=== PATIENT | male | born 1950 | race Caucasian/White ===

== ENCOUNTER 2018-04-17 10:23 | Emergency (ER) | payer MEDICARE, OTHER ==
[~2018-04-17 10:23] MED LIST: ASCO500C9 PO; ASPI-879 PO; CHOL200074 PO; GING250C3 PO; IBU200 PO; KRIL1CAP6 PO; LISI-355 PO; MAGN100T PO; METF-450 PO; PANT40TA65 PO; VITA1CAP46 PO; VITAMINS
[2018-04-17] MEDS ORDERED: TURM1POW3 MC (10:40)
[2018-04-17] MEDS ORDERED: MELA5TAB20 PO (10:40)
[2018-04-17] MEDS ORDERED: ASPI-1471 PO (10:40)
[2018-04-17] MEDS ORDERED: TUMERIC PO (10:40)
[2018-04-17] MEDS ORDERED: FINA5TAB67 PO (10:40)
[2018-04-17] MEDS ORDERED: ATOR20TA22 PO (10:40)
[2018-04-17] MEDS ORDERED: TAMS0.4C70 PO (10:40)
[2018-04-17] MEDS ORDERED: UBID10CA11 PO (10:40)
--- NOTE | 2018-04-17 10:46 | ER Report ---
History and Physical Time Seen By MD: 10:46 Hx. of Stated Complaint: MY BALANCE WAS OFF Allergies: Coded Allergies: No Known Allergies (Verified Allergy, Mild, 04/17/18) Home Meds Reported Medications Melatonin (MELATONIN) 5 Mg Tab.rapdis, 5 MG PO HS 04/17/18 Turmeric (CURCUMIN) 1 Gm Powder, 1 GM MC QDAY 04/17/18 Atorvastatin Calcium (LIPITOR) 20 Mg Tablet, 1 TAB PO QDAY, TAB 04/17/18 Finasteride (FINASTERIDE) 5 Mg Tablet, 5 MG PO QDAY 04/17/18 Tamsulosin Hcl (TAMSULOSIN HCL) 0.4 Mg Cap.er.24h, 0.4 MG PO QDAY, CAP 04/17/18 [Tumeric] No Conflict Check, 1 CAP PO QDAY 04/17/18 Ubidecarenone (CO Q-10) 10 Mg Capsule, 10 MG PO QDAY, CAPSULE 04/17/18 Aspirin (ASPIR 81) 81 Mg Tablet.dr, 81 MG PO QDAY, TAB 04/17/18 Metformin Hcl (METFORMIN HCL) 500 Mg Tablet, 2 TAB PO BID, TAB 11/25/16 Joyce Root (JOYCE) 250 Mg Capsule, 250 MG PO DAILY, CAPSULE 04/28/13 Krill/Om3/Dha/Epa/Om6/Lip/Astx (KRILL OIL 1,000 MG SOFTGEL) 1 Each Capsule, 1 EACH PO DAILY, CAPSULE 04/28/13 Vitamin B Complex (VITAMIN B COMPLEX) 1 Each Capsule, 1 EACH PO DAILY, CAPSULE 04/28/13 Ascorbic Acid (VITAMIN C) 500 Mg Capsule.er, 500 MG PO DAILY 04/28/13 Lisinopril/Hydrochlorothiazide (LISINOPRIL-HCTZ 20-25 MG TAB) 1 Each Tablet, 1 EACH PO DAILY 04/28/13 Discontinued Reported Medications Aspirin/Calcium Carbonate/Mag (ASPIRIN BUFFERED 325 MG TAB) 325 Mg Tablet, 325 MG PO DAILY 04/28/13 Magnesium Amino Acid Chelate (MAGNESIUM) 100 Mg Tablet, 100 MG PO DAILY 04/28/13 Cholecalciferol (Vitamin D3) (VITAMIN D-3) 2,000 Unit Capsule, 2000 UNIT PO DAILY, CAPSULE 04/28/13 Pantoprazole Sodium (PANTOPRAZOLE SODIUM) 40 Mg Tablet.dr, 40 MG PO QDAY, TAB.SR 04/28/13 Ibuprofen (Motrin) 200 Mg Tab, 200 MG PO HS 1 04/22/07 Constitutional Vital Sign - Last 24 Hours 04/17/18 10:32 Temp 97.9 Pulse 92 Resp 14 B/P (MAP) 146/105 Pulse Ox 92 O2 Delivery Room Air Depart Departure Latest Vital Signs Vital Signs Date Time Temp Pulse Resp B/P (MAP) Pulse Ox O2 Delivery O2 Flow Rate FiO2 04/17/18 10:32 97.9 92 14 146/105 92 Room Air Condition: Stable Disposition: HOME OR SELF-CARE Referrals: CRISTÓBAL GONZALEZ MD (PCP) BRITTON SIMPSON MD Apr 17, 2018 10:46
--- NOTE | 2018-04-17 11:00 | ER Report ---
History and Physical Time Seen By MD: 10:56 Hx. of Stated Complaint: MY BALANCE WAS OFF HPI/ROS CHIEF COMPLAINT: Lightheadedness HISTORY OF PRESENT ILLNESS: This is a 67-year-old male who presents to the emergency department for lightheadedness. The patient states that this morning while working on become a bike, he became lightheaded and lost his balance, did not fall or hit his head today. He states that he did fall about one month ago at the posterior aspect of his head on the ground, nearly lost consciousness. I ntermittent headaches since. His states that he had right-sided jaw pain this morning, no nausea or vomiting. No chest pain or shortness breath. No rashes. No visual changes. No recent fevers or chills. REVIEW OF SYSTEMS: Constitutional: No fever, no chills. Eyes: No discharge. ENT: No sore throat. Cardiovascular: No chest pain, no palpitations. Respiratory: No cough, no shortness of breath. Gastrointestinal: No abdominal pain, no vomiting. Genitourinary: No hematuria. Musculoskeletal: As above. Skin: No rashes. Neurological: As above. Allergies: Coded Allergies: No Known Allergies (Verified Allergy, Mild, 04/17/18) Home Meds Active Scripts Meclizine Hcl (MECLIZINE HCL) 25 Mg Tablet, 25 MG PO BID PRN for prn, #16 TAB 0 Refills Prov:JENNY TIPTON TABLE HAND-BC 04/17/18 Reported Medications Melatonin (MELATONIN) 5 Mg Tab.rapdis, 5 MG PO HS 04/17/18 Turmeric (CURCUMIN) 1 Gm Powder, 1 GM MC QDAY 04/17/18 Atorvastatin Calcium (LIPITOR) 20 Mg Tablet, 1 TAB PO QDAY, TAB 04/17/18 Finasteride (FINASTERIDE) 5 Mg Tablet, 5 MG PO QDAY 04/17/18 Tamsulosin Hcl (TAMSULOSIN HCL) 0.4 Mg Cap.er.24h, 0.4 MG PO QDAY, CAP 04/17/18 [Tumeric] No Conflict Check, 1 CAP PO QDAY 04/17/18 Ubidecarenone (CO Q-10) 10 Mg Capsule, 10 MG PO QDAY, CAPSULE 04/17/18 Aspirin (ASPIR 81) 81 Mg Tablet.dr, 81 MG PO QDAY, TAB 04/17/18 Metformin Hcl (METFORMIN HCL) 500 Mg Tablet, 2 TAB PO BID, TAB 11/25/16 Donte Root (DONTE) 250 Mg Capsule, 250 MG PO DAILY, CAPSULE 04/28/13 Krill/Om3/Dha/Epa/Om6/Lip/Astx (KRILL OIL 1,000 MG SOFTGEL) 1 Each Capsule, 1 EACH PO DAILY, CAPSULE 04/28/13 Vitamin B Complex (VITAMIN B COMPLEX) 1 Each Capsule, 1 EACH PO DAILY, CAPSULE 04/28/13 Ascorbic Acid (VITAMIN C) 500 Mg Capsule.er, 500 MG PO DAILY 04/28/13 Lisinopril/Hydrochlorothiazide (LISINOPRIL-HCTZ 20-25 MG TAB) 1 Each Tablet, 1 EACH PO DAILY 04/28/13 Discontinued Reported Medications Aspirin/Calcium Carbonate/Mag (ASPIRIN BUFFERED 325 MG TAB) 325 Mg Tablet, 325 MG PO DAILY 04/28/13 Magnesium Amino Acid Chelate (MAGNESIUM) 100 Mg Tablet, 100 MG PO DAILY 04/28/13 Cholecalciferol (Vitamin D3) (VITAMIN D-3) 2,000 Unit Capsule, 2000 UNIT PO DAILY, CAPSULE 04/28/13 Pantoprazole Sodium (PANTOPRAZOLE SODIUM) 40 Mg Tablet.dr, 40 MG PO QDAY, TAB.SR 04/28/13 Ibuprofen (Motrin) 200 Mg Tab, 200 MG PO HS 1 04/22/07 Past Medical/Surgical History The patient has a past medical and surgical history of hypertension, hypercholesterolemia, Debbi sleep apnea, uses BiPAP, pneumonia, colonoscopy, kidney stones, enlarged prostate, arthritis, wears glasses, type II diabetes, total hip replacement, back surgery. Reviewed Nurses Notes: Yes Constitutional Vital Sign - Last 24 Hours 04/17/18 04/17/18 04/17/18 04/17/18 10:28 10:32 10:53 11:00 Temp 97.9 Pulse 92 96 Resp 14 14 B/P (MAP) 146/105 (119) 146/105 126/93 (104) Pulse Ox 92 91 O2 Delivery Room Air Room Air 04/17/18 04/17/18 04/17/18 04/17/18 11:05 11:30 11:35 11:40 Pulse 98 86 86 Resp 12 12 14 B/P (MAP) 126/88 (101) Pulse Ox 90 90 90 O2 Delivery Room Air Room Air Room Air 04/17/18 04/17/18 04/17/18 04/17/18 11:45 12:15 12:30 12:45 Pulse 88 90 96 Resp 14 15 22 B/P (MAP) 125/103 (110) Pulse Ox 90 91 O2 Delivery Room Air Room Air 04/17/18 04/17/18 12:50 13:20 Pulse 87 91 Resp 11 15 Pulse Ox 91 91 O2 Delivery Room Air Room Air Physical Exam General Appearance: The patient is alert, has no immediate need for airway protection and no signs of toxicity. Eyes: Pupils equal and round no pallor or injection. 2-3 beats right lateral nystagmus, 1-2 beats left lateral nystagmus. No vertical nystagmus. EOMs intact. ENT, Mouth: Mucous membranes are moist. Respiratory: There are no retractions, lungs are clear to auscultation. Cardiovascular: Regular rate and rhythm, distant, no murmurs, clicks or rubs. Gastrointestinal: Abdomen is soft, very round, and non tender, no masses, bowel sounds normal. Neurological: Alert and oriented 4. Moving all extremities. Following all commands. No focal neuro deficits. Negative HINTS exam. Positive Romberg's test. Skin: Warm and dry, no rashes. Musculoskeletal: Neck is supple non tender. Extremities are nontender, nonswollen and have full range of motion. DIFFERENTIAL DIAGNOSIS: After history and physical exam differential diagnosis was considered for vertigo including but not limited to peripheral causes such as benign positional vertigo, Mnire's disease, viral labyrinthitis and central causes such as CVA, and tumor. NIH Stroke Scale: 0 Level of consciousness: Alert -0 Answers both questions correctly-0 Performs both tasks correctly-0 Best Gaze: Normal-0 Visual: No visual loss-0 Facial Palsy: Normal, symmetrical movements-0 Motor Left Arm: No drift for 10 seconds-0 Motor Right Arm: No drift for 10 seconds-0 Motor Left Leg: No drift for 5 seconds-0 Motor Right Leg: No drift for 5 seconds-0 Limb Ataxia: Absent-0 Sensory: Normal, no sensory loss-0 Best Language: Normal, no aphasia-0 Dysarthria: Normal-0 Extinction and Inattention: No abnormality-0 Medical Decision Making Data Points Result Diagram: 04/17/18 1130 04/17/18 1130 Laboratory Hematology Test 04/17/18 11:30 Red Blood Count 5.33 M/uL (4.00-5.60) Mean Corpuscular Volume 92.5 fL (80.0-96.0) Mean Corpuscular Hemoglobin 32.4 pg (26.0-33.0) Mean Corpuscular Hemoglobin Concent 35.1 g/dL (32.0-36.0) Red Cell Distribution Width 13.5 % (11.5-14.5) Mean Platelet Volume 7.9 fL (7.2-11.1) Neutrophils (%) (Auto) 58.2 % (39.4-72.5) Lymphocytes (%) (Auto) 30.2 % (17.6-49.6) Monocytes (%) (Auto) 9.3 % (4.1-12.4) Eosinophils (%) (Auto) 1.7 % (0.4-6.7) Basophils (%) (Auto) 0.6 % (0.3-1.4) Nucleated RBC Relative Count (auto) 0.0 /100WBC Neutrophils # (Auto) 3.3 K/uL (2.0-7.4) Lymphocytes # (Auto) 1.7 K/uL (1.3-3.6) Monocytes # (Auto) 0.5 K/uL (0.3-1.0) Eosinophils # (Auto) 0.1 K/uL (0.0-0.5) Basophils # (Auto) 0.0 K/uL (0.0-0.1) Nucleated RBC Absolute Count (auto) 0.00 K/uL Prothrombin Time 13.1 seconds (12.0-14.4) Prothromb Time International Ratio 0.99 Activated Partial Thromboplast Time 26 seconds (23-35) Sodium Level 138 mmol/L (137-145) Potassium Level 4.6 mmol/L (3.5-5.0) Chloride Level 110 mmol/L (98-107) Carbon Dioxide Level 19 mmol/L (22-30) Blood Urea Nitrogen 23 mg/dl (9-21) Creatinine 0.80 mg/dl (0.66-1.25) Glomerular Filtration Rate Calc > 60.0 Random Glucose 201 mg/dl (75-110) Calcium Level 10.4 mg/dl (8.4-10.2) Total Bilirubin 0.7 mg/dl (0.2-1.3) Aspartate Amino Transf (AST/SGOT) 46 U/L (0-35) Alanine Aminotransferase (ALT/SGPT) 53 U/L (0-56) Alkaline Phosphatase 60 U/L (0-126) Troponin I < 0.012 ng/ml Total Protein 7.2 g/dl (6.3-8.2) Albumin 4.3 g/dl (3.5-5.0) Chemistry Test 04/17/18 11:30 White Blood Count 5.7 k/uL (4.5-11.0) Red Blood Count 5.33 M/uL (4.00-5.60) Hemoglobin 17.3 g/dL (14.0-18.0) Hematocrit 49.3 % (42.0-52.0) Mean Corpuscular Volume 92.5 fL (80.0-96.0) Mean Corpuscular Hemoglobin 32.4 pg (26.0-33.0) Mean Corpuscular Hemoglobin Concent 35.1 g/dL (32.0-36.0) Red Cell Distribution Width 13.5 % (11.5-14.5) Platelet Count 183 K/uL (150-450) Mean Platelet Volume 7.9 fL (7.2-11.1) Neutrophils (%) (Auto) 58.2 % (39.4-72.5) Lymphocytes (%) (Auto) 30.2 % (17.6-49.6) Monocytes (%) (Auto) 9.3 % (4.1-12.4) Eosinophils (%) (Auto) 1.7 % (0.4-6.7) Basophils (%) (Auto) 0.6 % (0.3-1.4) Nucleated RBC Relative Count (auto) 0.0 /100WBC Neutrophils # (Auto) 3.3 K/uL (2.0-7.4) Lymphocytes # (Auto) 1.7 K/uL (1.3-3.6) Monocytes # (Auto) 0.5 K/uL (0.3-1.0) Eosinophils # (Auto) 0.1 K/uL (0.0-0.5) Basophils # (Auto) 0.0 K/uL (0.0-0.1) Nucleated RBC Absolute Count (auto) 0.00 K/uL Prothrombin Time 13.1 seconds (12.0-14.4) Prothromb Time International Ratio 0.99 Activated Partial Thromboplast Time 26 seconds (23-35) Glomerular Filtration Rate Calc > 60.0 Calcium Level 10.4 mg/dl (8.4-10.2) Total Bilirubin 0.7 mg/dl (0.2-1.3) Aspartate Amino Transf (AST/SGOT) 46 U/L (0-35) Alanine Aminotransferase (ALT/SGPT) 53 U/L (0-56) Alkaline Phosphatase 60 U/L (0-126) Troponin I < 0.012 ng/ml Total Protein 7.2 g/dl (6.3-8.2) Albumin 4.3 g/dl (3.5-5.0) Coagulation Test 04/17/18 11:30 Prothrombin Time 13.1 seconds Prothromb Time International Ratio 0.99 Activated Partial Thromboplast Time 26 seconds EKG/Imaging EKG Interpretation 12 lead EKG: Time of EKG 1135. Rhythm: Sinus rhythm,, sinus arrhythmia, ventricular rate 79 BPM. [place]: normal QRS: normal ST segments: No ST depression or elevation identified. No significant changes from the 11/29/2016 EKG. Imaging Location: [facility] Patient: Damián Zamora : 1950 Visit/Account:[id number] Date of Sevice: 04/17/2018 CT BRAIN NO CONTRAST HISTORY: lightheadedness, COMPARISON STUDIES: The previous study from January 09, 2014 is not available for comparison at this time, but the report is. TECHNIQUE: Contiguous axial images were obtained from the skull base to the vertex. One of the following dose optimization techniques was utilized in the performance of this exam: Automated exposure control; adjustment of the mA and/or kV according to the patient's size; or use of an iterative reconstruction technique. Specific details can be referenced in the facility's radiology CT exam operational policy. FINDINGS: Hemorrhage: There is no intraparenchymal or extra-axial bleed. Ventricles / sulci / fissures: Negative Masses / midline shift: Negative White matter and herrera matter: Previously noted subtle findings of small vessel white matter ischemic disease described on the prior MRI report are not as well seen on the CT scan Extra-axial spaces: Negative Bones/skull base: Negative Visualized mastoid air cells / paranasal sinuses: No significant mucosal thickening. Small retention cyst inferior aspect of right maxillary sinus. Scalp and soft tissues: No findings of a scalp hematoma. Vascular/other findings: Mild vascular calcification of the supraclinoid inte rnal carotid arteries bilaterally. IMPRESSION: Normal non-contrast head CT without findings of a mass, bleed, or site of acute infarction. Report Dictated By: Pramod Wahl MD at 04/17/2018 12:25 PM Report E-Signed By: Pramod Wahl MD at 04/17/2018 12:34 PM WSN:[id number] Location: [facility] Patient: Damián Zamora : 1950 Visit/Account:[id number] Date of Sevice: 04/17/2018 CHEST PA LAT HISTORY: Lightheadedness. COMPARISON: Chest x-ray November,. FINDINGS: Cardiomediastinal contours: The heart is mildly enlarged. Lungs and pleura: There is no finding of an infiltrate, lymphadenopathy or pleural effusion. There is mild hyperinflation of the lungs. Bones/soft tissues: There are no findings of a fracture. IMPRESSION: Cardiomegaly without active disease in the chest. Report Dictated By: Pramod Wahl MD at 04/17/2018 12:22 PM Report E-Signed By: Pramod Wahl MD at 04/17/2018 12:23 PM WSN:[id number] ED Course/Re-evaluation Clinical Indication for ER IV: IV Access ED Course Patient was admitted to room. A history and physical were obtained. Differential diagnoses were considered. An IV was started. A CBC, CMP and troponin were obtained. CBC unremarkable, chemistries showing chloride 110, CO2 19, glucose of 201, calcium 10.4, negative troponin. EKG showing sinus rhythm no acute findings. Two-view chest x-ray negative for any acute cardiopulmonary process. No acute findings on the CT of the brain. I reviewed the results with the patimae moran. He had a negative HINTS exam. Was given 25 mg by mouth meclizine had significant relief of his unsteadiness and lightheadedness. Patient states he is feeling much better. I did tell the patient that I feel that his symptoms are consistent with vertigo however I would like him to follow up as soon as possible with his primary care provider for a more in-depth workup for a TIA, which we discussed includes carotid studies echocardiogram and an MRI of the brain. Patient is too large for our MRI and will need to have a follow-up MRI and [place]. I did tell the patient that should his symptoms return or have any other concerning findings or symptoms that he must return to the emergency department immediately for reevaluation. Patient expressed understanding and was discharged home. 0 on the NIH stroke scale. Decision to Disposition Date: Apr 17, 2018 Decision to Disposition Time: 14:04 Depart Departure Latest Vital Signs Vital Signs Date Time Temp Pulse Resp B/P (MAP) Pulse Ox O2 Delivery O2 Flow Rate FiO2 04/17/18 13:20 91 15 91 Room Air 04/17/18 12:30 125/103 (110) 04/17/18 10:32 97.9 Impression: Primary Impression: Vertigo Condition: Improved Disposition: HOME OR SELF-CARE Referrals: CRISTÓBAL GONZALEZ MD (PCP) New Scripts Meclizine Hcl (MECLIZINE HCL) 25 Mg Tablet 25 MG PO BID PRN for prn, #16 TAB 0 Refills Prov: JENNY TIPTON 04/17/18 Patient Instructions: Vertigo (ED) Additional Instructions: Your symptoms are consistent with vertigo. However I would still recommend following up with your primary care provider Thursday, discussing a in-depth workup for TIAs, carotid ultrasound, echocardiogram and an MRI in [place] as he did not fit in our MRI machine. Be sure to drink plenty of water. Get plenty of rest. Whenever changing positions from lying, sitting or standing be sure to do it slowly. Take the meclizine as needed for the lightheadedness and dizziness. Return to the emergency department for any other concerns or worsening symptoms. JENNY TIPTON-JAMAR Apr 17, 2018 11:00
[2018-04-17 11:43] LABS: PLATELET COUNT, AUTOMATED 183 K/uL (150-450)
[2018-04-17 11:50] LABS: INR 0.99
--- NOTE | 2018-04-17 12:27 | RADIOLOGY IMAGING REPORT ---
FACILITY: [facility] PATIENT NAME: Damián Zamora : 1950 MR: [id number] V: [id number] EXAM DATE: ORDERING PHYSICIAN: JENNY TIPTON TECHNOLOGIST: Location: [facility] Patient: Damián Zamora : 1950 Visit/Account:[id number] Date of Sevice: 04/17/2018 CHEST PA LAT HISTORY: Lightheadedness. COMPARISON: Chest x-ray November,. FINDINGS: Cardiomediastinal contours: The heart is mildly enlarged. Lungs and pleura: There is no finding of an infiltrate, lymphadenopathy or pleural effusion. There is mild hyperinflation of the lungs. Bones/soft tissues: There are no findings of a fracture. IMPRESSION: Cardiomegaly without active disease in the chest. Report Dictated By: Pramod Wahl MD at 04/17/2018 12:22 PM Report E-Signed By: Pramod Wahl MD at 04/17/2018 12:23 PM WSN:[id number]
[2018-04-17 12:30] VITALS: BP 125/103
--- NOTE | 2018-04-17 12:36 | EKG ---
FACILITY: [facility] PATIENT NAME: RUPALI ROCKWELL : [id number] MR: [id number] V: [id number] EXAM DATE: ORDERING PHYSICIAN: JENNY TIPTON TECHNOLOGIST: Test Reason : lightheadedness Blood Pressure : / mmHG Vent. Rate : 079 BPM Atrial Rate : 079 BPM P-R Int : 148 ms QRS Dur : 112 ms QT Int : 372 ms P-R-T Axes : 017 054 018 degrees QTc Int : 426 ms Sinus rhythm with premature supraventricular complexes Nonspecific interventricular conduction delay Nonspecific ST findings in precordial leads Confirmed by DAPHNEY FARAH ([id number]) on 04/17/2018 9:10:40 PM Referred By: Confirmed By:DAPHNEY FARAH
--- NOTE | 2018-04-17 12:38 | RADIOLOGY IMAGING REPORT ---
FACILITY: [facility] PATIENT NAME: Damián Zamora : 1950 MR: [id number] V: [id number] EXAM DATE: [id number] ORDERING PHYSICIAN: JENNY TIPTON TECHNOLOGIST: [place] [facility] [place] Damián Zamora : 1950 Visit/Account:[id number] Date of Sevice: 04/17/2018 CT BRAIN NO CONTRAST HISTORY: lightheadedness, COMPARISON STUDIES: The previous study from January 09, 2014 is not available for comparison at this time, but the report is. TECHNIQUE: Contiguous axial images were obtained from the skull base to the vertex. One of the following dose optimization techniques was utilized in the performance of this exam: Autom ated exposure control; adjustment of the mA and/or kV according to the patient's size; or use of an i terative reconstruction technique. Specific details can be referenced in the facility's radiology C T exam operational policy. FINDINGS: Hemorrhage: There is no intraparenchymal or extra-axial bleed. Ventricles / sulci / fissures: Negative Masses / midline shift: Negative White matter and herrera matter: Previously noted subtle findings of small vessel white matter ischemic disease described on the prior MRI report are not as well seen on the CT scan Extra-axial spaces: Negative Bones/skull base: Negative Visualized mastoid air cells / paranasal sinuses: No significant mucosal thickening. Small retention cyst inferior aspect of right maxillary sinus. Scalp and soft tissues: No findings of a scalp hematoma. Vascular/other findings: Mild vascular calcification of the supraclinoid internal carotid arteries bi laterally. IMPRESSION: Normal non-contrast head CT without findings of a mass, bleed, or site of acute infarction. Report Dictated By: Pramod Wahl MD at 04/17/2018 12:25 PM Report E-Signed By: Pramod Wahl MD at 04/17/2018 12:34 PM WSN:[id number]
[2018-04-17] MEDS ORDERED: MECLIZINE HCL 25 MG TAB PO ONE (12:50)
[2018-04-17] MEDS ORDERED: MECL25TA9 PO (14:06)
== END 2018-04-17 14:14 | disposition home or self-care (01) ==
LOC: ER 10:49
DX: R42 Dizziness and giddiness (principal)
CPT/HCPCS: 70450; 71046; 84484; 85025; 85610; 85730; 93005; 99284; J8597; 82040; 82247; 82310; 82374; 82435; 82565; 82947; 84075; 84132; 84155; 84295; 84450; 84460; 84520

== ENCOUNTER 2018-08-05 01:01 | Day surgery (SDC) | payer MEDICARE, OTHER ==
[~2018-08-05] VITALS: Ht 193 cm; Wt 148.3 kg
[~2018-08-05 01:01] MED LIST changes: +ASPI-1471 PO; +ATOR20TA22 PO; +FINA5TAB67 PO; +MECL25TA9 PO; +MELA5TAB20 PO; +TAMS0.4C70 PO; +TUMERIC PO; +TURM1POW3 MC; +UBID10CA11 PO
[2018-08-05] MEDS ORDERED: PROPOFOL EMUL(*) 10MG/ML 20 ML 40 ML ONE (07:05)
[2018-08-05 10:25] VITALS: BP 119/79
[2018-08-05] MEDS ORDERED: LIDOCAINE/SOD BICARB 8.4% SYR ID ONE (10:50)
[2018-08-05] MEDS ORDERED: NORMOSOL R SOLN(*) 1000 ML BAG 1,000 ML IV PRN (10:50)
[2018-08-05] MEDS ORDERED: PROPOFOL EMUL(*) 10MG/ML 20 ML 20 ML ONE (11:45)
[2018-08-05 12:46] VITALS: BP 93/59
[2018-08-05 13:11] VITALS: BP 100/69
[2018-08-05 13:21] VITALS: BP 116/82
[2018-08-05 13:39] VITALS: BP 109/91
[2018-08-05 13:40] VITALS: BP 128/82
== END 2018-08-05 13:50 | disposition home or self-care (01) ==
LOC: OR 01:01
PROVIDERS: ATTEND Internal Medicine Gastroenterology
DX: Z12.11 Encounter for screening for malignant neoplasm of colon (principal); D12.0 Benign neoplasm of cecum; Z80.0 Family history of malignant neoplasm of digestive organs; K64.8 Other hemorrhoids; K57.30 Diverticulosis of large intestine without perforation or abscess without bleeding; E11.9 Type 2 diabetes mellitus without complications
CPT/HCPCS: 00811; 36416; 45380; 82948; 88305; J2704